=== PATIENT | female | born 1980 | race Caucasian/White ===

== ENCOUNTER 2018-09-24 14:19 | Observation (INO) ==
[2018-09-24] MEDS ORDERED: 0.9 % Sodium Chloride 1,000 ML IVC ONE ×4 (14:35→19:24)
[2018-09-24] MEDS ORDERED: Isovue-370 500 ML INFUS..BTL IV ONE (14:43)
[2018-09-24] MEDS ORDERED: Ondansetron 4 MG/2 ML VIAL IVP ONE (14:44)
[2018-09-24 15:26] LABS: Basophils % 0.2 %; Eosinophils % 0.2 %; Hematocrit 43.9 % (35.3-44.9); Hemoglobin 15.2 g/dL (11.5-15.4); Immature Granulocytes % 0.6 % (0-4); Lymphocytes # 0.2 K/mcL (0.6-4.6); Lymphocytes % 1.8 %; Mean Corpuscular HGB Conc 34.6 g/dL (31.6-35.5); Mean Corpuscular Hemoglobin 30.2 pg (28.0-33.3); Mean Corpuscular Volume 87.3 fL (83.0-100.0); Mean Platelet Volume 10.1 fL (9.4-12.4); Monocytes # 0.2 K/mcL (0.0-1.3); Monocytes % 1.6 %; Neutrophils # 11.8 K/mcL (1.6-8.9); Platelet Count 229 K/mcL (140-400); Red Blood Count 5.03 M/mcL (3.82-4.97); Red Cell Distribution Width 13.5 % (11.5-14.5); Segmented Neutrophils % 95.6 %
[2018-09-24 15:29] LABS: Bilirubin,Urine Negative (Negative); Blood,Urine Small (Negative); Clarity,Urine Slightly Cloudy (Clear); Color,Urine Yellow (Yellow); Glucose,Urine (UA) Normal (Normal); Ketones,Urine Negative (Negative); Leukocyte Esterase,Urine Negative (Negative); Nitrite,Urine Negative (Negative); Protein,Urine 30 mg/dL (Neg-Trace); Specific Gravity,Urine >= 1.030 (1.010-1.025); Urobilinogen,Urine Normal (Normal)
[2018-09-24 15:35] LABS: INR 1.1; Prothrombin Time 12.4 Seconds (9.4-12.1)
[2018-09-24 15:37] LABS: Activated Partial Thrombo Time 29.9 Seconds (26.0-36.0)
[2018-09-24 15:41] LABS: RBC,Urine 0-3 per hpf (0-3)
[2018-09-24 15:42] LABS: Hyaline Casts,Urine Few per lpf (None-Few); Squamous Epithelial Cell,Urine Few per lpf (None-Few); WBC,Urine 0-3 per hpf (0-3)
[2018-09-24 15:43] LABS: Amphetamine Screen,Urine Negative ng/mL (Cutoff=1000); Bacteria,Urine Few per hpf (None-Few); Barbiturate Screen,Urine Negative ng/mL (Cutoff=200); Benzodiazepines Screen,Urine Negative ng/mL (Cutoff=200); Cannabinoid Screen,Urine Negative ng/mL (Cutoff = 50); Cocaine Screen,Urine Negative ng/mL (Cutoff= 300); Mucus,Urine Few (Few); Opiate Screen,Urine Negative ng/mL (Cutoff=300); Phencyclidine Screen,Urine Negative ng/mL (Cutoff=25)
[2018-09-24 15:44] LABS: BUN/Creatinine Ratio 17 (6-26); Blood Urea Nitrogen 13 mg/dL (6-20); Calcium 9.1 mg/dL (8.6-10.3); Carbon Dioxide 23 mEq/L (23-29); Chloride 103 mEq/L (98-107); Glucose 130 mg/dL (70-105); Osmolality,Calculated 286 (280-300); Potassium 3.9 mEq/L (3.5-5.1); Sodium 137 mEq/L (136-145); eGFR For Non-African Americans > 60 (> 60)
[2018-09-24 15:47] LABS: Troponin I < 0.03 ng/mL (< 0.04)
--- NOTE | 2018-09-24 15:53 | Emergency Department Note ---
Disposition Clinical Impression: Sinus tachycardia, Dehydration, Nausea & vomiting, Diarrhea Disposition: Home, Self-Care Condition: Fair Time of Disposition: 18:00 Arrhythmia/Palpitations HPI - General Chief Complaint: ED Arrhythmia/Palpitations Stated Complaint: Chest Heaviness, Palpitations Time Seen by Provider: 09/24/18 14:20 Source: patient, family Mode of arrival: ambulatory Limitations: no limitations Nursing Notes Reviewed: Yes Vital Signs Reviewed: Yes - History of Present Illness HPI Narrative: 38-year-old female who presents today with 2 days of worsening palpitations and intermittent chest pain states that today she has been having nausea vomiting and diarrhea with it. She states the chest pain still comes and goes. She states that she was laying flat at home and checked her blood pressure which was 116 systolic by her heart rate was in the 120s 140s. She states that she does not have any cardiac history but her family does. She states that she is very concerned. She is not a smoker. She is overweight. States about once an hour she has diarrhea episodes. This been no blood in it. She denies any belly pain. She states she has had fever at home. Pt Subjective Complaint: palpitations - Related Data Allergies Allergy/AdvReac Type Severity Reaction Status Date / Time pegfilgrastim [From Neulasta] Allergy Rash Verified 07/31/18 16:37 Review of Systems: All other systems are negative except as noted/marked Chart generated with voice recognition software Nursing notes reviewed Old records reviewed Past Medical History - Past Medical History Attestation: Yes The following information was validated with the patient. Source: patient, old records reviewed, nursing notes reviewed Medical history: Reports: cancer, other Psychiatric history: Reports: anxiety, depression - Social History Smoking Status: Never smoker Smokeless Tobacco Status: No Alcohol use: Reports: none Drug use: Reports: none Physical Exam - General Limitations: no limitations General appearance: alert, anxious, in distress - Head Head exam: atraumatic, normocephalic, normal inspection - Eye Eye exam: Present: normal appearance, PERRL, EOMI - ENT ENT exam: normal exam, normal oropharynx, mucous membranes dry, normal external ear exam - Neck Neck exam: Present: normal inspection, full ROM, trachea midline - Chest Chest inspection: Present: normal inspection, symmetric chest wall rise - Respiratory Respiratory exam: Present: normal lung sounds bilaterally - Cardiovascular Cardiovascular exam: Present: normal rhythm, tachycardia - Abdominal Exam Abdominal exam: Present: soft, hyperactive bowel sounds. Absent: tenderness - Extremities Exam Extremities exam: Present: normal inspection, full ROM. Absent: tenderness, pedal edema - Back Exam Back exam: Present: normal inspection, full ROM. Absent: tenderness - Neurological Exam Neurological exam: Present: alert, oriented X3, CN II-XII intact - Psychiatric Psychiatric exam: Present: normal affect, normal mood - Skin Skin exam: Present: warm, dry, intact, normal color Course Vital Signs Temperature 98.7 F 09/24/18 14:21 Pulse Rate 134 09/24/18 14:21 Respiratory Rate 18 09/24/18 14:21 Blood Pressure 148/91 09/24/18 14:21 O2 Sat by Pulse Oximetry 97 09/24/18 14:21 Temperature 99.2 F 09/24/18 18:21 Pulse Rate 121 09/24/18 18:21 Respiratory Rate 34 09/24/18 18:21 Blood Pressure 126/84 09/24/18 18:21 O2 Sat by Pulse Oximetry 96 09/24/18 18:21 Oxygen Delivery Oxygen Delivery Room Air Arrhythmia/Palpitations - [facility] Narrative Medical decision making narrative: 38yo F 126 hr, 127/76 bp on re-eval after one liter NSGabriel weber paged at [phone], accepted patient to floor. Patient's had 2 L NS zofran and phenergan. Patient presents today with nausea vomiting diarrhea and 2 days of intermittent chest pressure and pain. She states after IV fluids she's not feeling much better and is still nauseated after zofran. I did give her a dose of phenergan however, she states she doesn't like how it makes her feel now, and she doesn't want any additional nausea meds. Her lab work revealed a mild white count elevation and lactic acidosis however her troponin was negative mass for labwork was unremarkable. After 1 L hers brought her troponin name negative and her lactate came down however did not completely resolve after the first liter was completed in the second liter have been started. I do think that she needs to stay in the hospital this point. Her second troponin was negative. We discussed staying here going to arouse she preferred stay here. She said 2 negative troponins I do not think this is cardiac necessarily related anxious some sort of gastroenteritis is probably viral. Cannot find a source of infection otherwise. She feeling better she is not throwing up anymore and not sent however she says that she does not like the way the Phenergan makes her feel. I do think that bringing her in for intractable nausea and letting her rest and IV fluids that her heart rate comes back down to normal is reasonable. Dr. Weber agreed with me except for the patient to the floor. - Medical Records Medical records reviewed: Yes I reviewed the patient's medical records. - Lab Data Lab results reviewed: Yes I reviewed the patient's lab results. Result diagrams: 09/24/18 15:10 09/24/18 15:10 Lab Results 09/24/18 09/24/18 09/24/18 Range/Units 15:10 15:10 15:10 WBC 12.3 H (4.3-11.1) K/mcL RBC 5.03 H (3.82-4.97) M/mcL Hgb 15.2 (11.5-15.4) g/dL Hct 43.9 (35.3-44.9) % MCV 87.3 (83.0-100.0) fL MCH 30.2 (28.0-33.3) pg MCHC 34.6 (31.6-35.5) g/dL RDW 13.5 (11.5-14.5) % Plt Count 229 (140-400) K/mcL MPV 10.1 (9.4-12.4) fL Immature Gran % 0.6 (0-4) % Seg Neutrophils % 95.6 % Lymphocytes % 1.8 % Monocytes % 1.6 % Eosinophils % 0.2 % Basophils % 0.2 % Neutrophils # 11.8 H (1.6-8.9) K/mcL Lymphocytes # 0.2 L (0.6-4.6) K/mcL Monocytes # 0.2 (0.0-1.3) K/mcL Eosinophils # 0.0 (0.0-0.6) K/mcL Basophils # 0.0 (0.0-0.2) K/mcL PT 12.4 H (9.4-12.1) Seconds INR 1.1 APTT 29.9 (26.0-36.0) Seconds Sodium 137 (136-145) mEq/L Potassium 3.9 (3.5-5.1) mEq/L Chloride 103 (98-107) mEq/L Carbon Dioxide 23 (23-29) mEq/L BUN 13 (6-20) mg/dL Creatinine 0.75 (0.60-1.20) mg/dL Est GFR ( Amer) > 60 (> 60) Est GFR (Non-Af Amer) > 60 (> 60) BUN/Creatinine Ratio 17 (6-26) Glucose 130 H (70-105) mg/dL Calculated Osmolality 286 (280-300) Lactic Acid (0.5-2.2) mmol/L Calcium 9.1 (8.6-10.3) mg/dL Magnesium (1.6-2.6) mg/dL Total Bilirubin (0.3-1.0) mg/dL Direct Bilirubin (0.0-0.2) mg/dL Indirect Bilirubin (0.0-1.2) mg/dL AST (13-39) Units/L ALT (7-52) Units/L Alkaline Phosphatase (34-104) Units/L Troponin I < 0.03 (< 0.04) ng/mL Serum Total Protein (6.4-8.9) g/dL Albumin (3.5-5.7) g/dL Globulin (2.4-3.5) g/dL Albumin/Globulin Ratio (1.1-2.2) Lipase (11-82) Units/L TSH 1.222 (0.340-5.600) mcIU/mL Urine Color (Yellow) Urine Clarity (Clear) Urine pH (5.0-8.0) pH Units Ur Specific [place] (1.010-1.025) Urine Protein (Neg-Trace) mg/dL Urine Glucose (UA) (Normal) mg/dL Urine Ketones (Negative) mg/dL Urine Blood (Negative) Urine Nitrite (Negative) Urine Bilirubin (Negative) Urine Urobilinogen (Normal) mg/dL Ur Leukocyte Esterase (Negative) Urine Microscopic RBC (0-3) per hpf Urine Microscopic WBC (0-3) per hpf Ur Squamous Epith Cells (None-Few) per lpf Urine Bacteria (None-Few) per hpf Hyaline Casts (None-Few) per lpf Urine Mucus (Few) Ur Culture Indicated? (NO) Urine Opiates Screen (Folusz=667) ng/mL Ur Oxycodone Screen (Cutoff= 100) ng/mL Ur Barbiturates Screen (Yzuvsc=571) ng/mL Ur Phencyclidine Scrn (Cutoff=25) ng/mL Ur Amphetamines Screen (Yewjcs=9308) ng/mL U Benzodiazepines Scrn (Inuxrw=946) ng/mL Urine Cocaine Screen (Cutoff= 300) ng/mL U Marijuana (THC) Screen (Cutoff = 50) ng/mL Ur Drug Screen Interp 09/24/18 09/24/18 09/24/18 Range/Units 15:10 15:10 15:10 WBC (4.3-11.1) K/mcL RBC (3.82-4.97) M/mcL Hgb (11.5-15.4) g/dL Hct (35.3-44.9) % MCV (83.0-100.0) fL MCH (28.0-33.3) pg MCHC (31.6-35.5) g/dL RDW (11.5-14.5) % Plt Count (140-400) K/mcL MPV (9.4-12.4) fL Immature Gran % (0-4) % Seg Neutrophils % % Lymphocytes % % Monocytes % % Eosinophils % % Basophils % % Neutrophils # (1.6-8.9) K/mcL Lymphocytes # (0.6-4.6) K/mcL Monocytes # (0.0-1.3) K/mcL Eosinophils # (0.0-0.6) K/mcL Basophils # (0.0-0.2) K/mcL PT (9.4-12.1) Seconds INR APTT (26.0-36.0) Seconds Sodium (136-145) mEq/L Potassium (3.5-5.1) mEq/L Chloride (98-107) mEq/L Carbon Dioxide (23-29) mEq/L BUN (6-20) mg/dL Creatinine (0.60-1.20) mg/dL Est GFR ( Amer) (> 60) Est GFR (Non-Af Amer) (> 60) BUN/Creatinine Ratio (6-26) Glucose (70-105) mg/dL Calculated Osmolality (280-300) Lactic Acid 2.8 H (0.5-2.2) mmol/L Calcium (8.6-10.3) mg/dL Magnesium 1.7 (1.6-2.6) mg/dL Total Bilirubin 0.4 (0.3-1.0) mg/dL Direct Bilirubin 0.0 (0.0-0.2) mg/dL Indirect Bilirubin 0.4 (0.0-1.2) mg/dL AST 13 (13-39) Units/L ALT 14 (7-52) Units/L Alkaline Phosphatase 65 (34-104) Units/L Troponin I (< 0.04) ng/mL Serum Total Protein 7.3 (6.4-8.9) g/dL Albumin 4.1 (3.5-5.7) g/dL Globulin 3.2 (2.4-3.5) g/dL Albumin/Globulin Ratio 1.3 (1.1-2.2) Lipase 19 (11-82) Units/L TSH (0.340-5.600) mcIU/mL Urine Color (Yellow) Urine Clarity (Clear) Urine pH (5.0-8.0) pH Units Ur Specific [place] (1.010-1.025) Urine Protein (Neg-Trace) mg/dL Urine Glucose (UA) (Normal) mg/dL Urine Ketones (Negative) mg/dL Urine Blood (Negative) Urine Nitrite (Negative) Urine Bilirubin (Negative) Urine Urobilinogen (Normal) mg/dL Ur Leukocyte Esterase (Negative) Urine Microscopic RBC (0-3) per hpf Urine Microscopic WBC (0-3) per hpf Ur Squamous Epith Cells (None-Few) per lpf Urine Bacteria (None-Few) per hpf Hyaline Casts (None-Few) per lpf Urine Mucus (Few) Ur Culture Indicated? (NO) Urine Opiates Screen (Iflqpn=506) ng/mL Ur Oxycodone Screen (Cutoff= 100) ng/mL Ur Barbiturates Screen (Vwxjwj=185) ng/mL Ur Phencyclidine Scrn (Cutoff=25) ng/mL Ur Amphetamines Screen (Oyjmxj=9771) ng/mL U Benzodiazepines Scrn (Lzwcsb=587) ng/mL Urine Cocaine Screen (Cutoff= 300) ng/mL U Marijuana (THC) Screen (Cutoff = 50) ng/mL Ur Drug Screen Interp 09/24/18 09/24/18 09/24/18 Range/Units 15:17 15:17 16:20 WBC (4.3-11.1) K/mcL RBC (3.82-4.97) M/mcL Hgb (11.5-15.4) g/dL Hct (35.3-44.9) % MCV (83.0-100.0) fL MCH (28.0-33.3) pg MCHC (31.6-35.5) g/dL RDW (11.5-14.5) % Plt Count (140-400) K/mcL MPV (9.4-12.4) fL Immature Gran % (0-4) % Seg Neutrophils % % Lymphocytes % % Monocytes % % Eosinophils % % Basophils % % Neutrophils # (1.6-8.9) K/mcL Lymphocytes # (0.6-4.6) K/mcL Monocytes # (0.0-1.3) K/mcL Eosinophils # (0.0-0.6) K/mcL Basophils # (0.0-0.2) K/mcL PT (9.4-12.1) Seconds INR APTT (26.0-36.0) Seconds Sodium (136-145) mEq/L Potassium (3.5-5.1) mEq/L Chloride (98-107) mEq/L Carbon Dioxide (23-29) mEq/L BUN (6-20) mg/dL Creatinine (0.60-1.20) mg/dL Est GFR ( Amer) (> 60) Est GFR (Non-Af Amer) (> 60) BUN/Creatinine Ratio (6-26) Glucose (70-105) mg/dL Calculated Osmolality (280-300) Lactic Acid 2.3 H (0.5-2.2) mmol/L Calcium (8.6-10.3) mg/dL Magnesium (1.6-2.6) mg/dL Total Bilirubin (0.3-1.0) mg/dL Direct Bilirubin (0.0-0.2) mg/dL Indirect Bilirubin (0.0-1.2) mg/dL AST (13-39) Units/L ALT (7-52) Units/L Alkaline Phosphatase (34-104) Units/L Troponin I (< 0.04) ng/mL Serum Total Protein (6.4-8.9) g/dL Albumin (3.5-5.7) g/dL Globulin (2.4-3.5) g/dL Albumin/Globulin Ratio (1.1-2.2) Lipase (11-82) Units/L TSH (0.340-5.600) mcIU/mL Urine Color Yellow (Yellow) Urine Clarity Slightly Cloudy A (Clear) Urine pH 5.0 (5.0-8.0) pH Units Ur Specific [place] >= 1.030 H (1.010-1.025) Urine Protein 30 H (Neg-Trace) mg/dL Urine Glucose (UA) Normal (Normal) mg/dL Urine Ketones Negative (Negative) mg/dL Urine Blood Small H (Negative) Urine Nitrite Negative (Negative) Urine Bilirubin Negative (Negative) Urine Urobilinogen Normal (Normal) mg/dL Ur Leukocyte Esterase Negative (Negative) Urine Microscopic RBC 0-3 (0-3) per hpf Urine Microscopic WBC 0-3 (0-3) per hpf Ur Squamous Epith Cells Few (None-Few) per lpf Urine Bacteria Few (None-Few) per hpf Hyaline Casts Few (None-Few) per lpf Urine Mucus Few (Few) Ur Culture Indicated? NO (NO) Urine Opiates Screen Negative (Uhpprc=235) ng/mL Ur Oxycodone Screen Negative (Cutoff= 100) ng/mL Ur Barbiturates Screen Negative (Kymnyu=255) ng/mL Ur Phencyclidine Scrn Negative (Cutoff=25) ng/mL Ur Amphetamines Screen Negative (Mohfah=2158) ng/mL U Benzodiazepines Scrn Negative (Vjfocr=690) ng/mL Urine Cocaine Screen Negative (Cutoff= 300) ng/mL U Marijuana (THC) Screen Negative (Cutoff = 50) ng/mL Ur Drug Screen Interp See Below 09/24/18 Range/Units 17:07 WBC (4.3-11.1) K/mcL RBC (3.82-4.97) M/mcL Hgb (11.5-15.4) g/dL Hct (35.3-44.9) % MCV (83.0-100.0) fL MCH (28.0-33.3) pg MCHC (31.6-35.5) g/dL RDW (11.5-14.5) % Plt Count (140-400) K/mcL MPV (9.4-12.4) fL Immature Gran % (0-4) % Seg Neutrophils % % Lymphocytes % % Monocytes % % Eosinophils % % Basophils % % Neutrophils # (1.6-8.9) K/mcL Lymphocytes # (0.6-4.6) K/mcL Monocytes # (0.0-1.3) K/mcL Eosinophils # (0.0-0.6) K/mcL Basophils # (0.0-0.2) K/mcL PT (9.4-12.1) Seconds INR APTT (26.0-36.0) Seconds Sodium (136-145) mEq/L Potassium (3.5-5.1) mEq/L Chloride (98-107) mEq/L Carbon Dioxide (23-29) mEq/L BUN (6-20) mg/dL Creatinine (0.60-1.20) mg/dL Est GFR ( Amer) (> 60) Est GFR (Non-Af Amer) (> 60) BUN/Creatinine Ratio (6-26) Glucose (70-105) mg/dL Calculated Osmolality (280-300) Lactic Acid (0.5-2.2) mmol/L Calcium (8.6-10.3) mg/dL Magnesium (1.6-2.6) mg/dL Total Bilirubin (0.3-1.0) mg/dL Direct Bilirubin (0.0-0.2) mg/dL Indirect Bilirubin (0.0-1.2) mg/dL AST (13-39) Units/L ALT (7-52) Units/L Alkaline Phosphatase (34-104) Units/L Troponin I < 0.03 (< 0.04) ng/mL Serum Total Protein (6.4-8.9) g/dL Albumin (3.5-5.7) g/dL Globulin (2.4-3.5) g/dL Albumin/Globulin Ratio (1.1-2.2) Lipase (11-82) Units/L TSH (0.340-5.600) mcIU/mL Urine Color (Yellow) Urine Clarity (Clear) Urine pH (5.0-8.0) pH Units Ur Specific [place] (1.010-1.025) Urine Protein (Neg-Trace) mg/dL Urine Glucose (UA) (Normal) mg/dL Urine Ketones (Negative) mg/dL Urine Blood (Negative) Urine Nitrite (Negative) Urine Bilirubin (Negative) Urine Urobilinogen (Normal) mg/dL Ur Leukocyte Esterase (Negative) Urine Microscopic RBC (0-3) per hpf Urine Microscopic WBC (0-3) per hpf Ur Squamous Epith Cells (None-Few) per lpf Urine Bacteria (None-Few) per hpf Hyaline Casts (None-Few) per lpf Urine Mucus (Few) Ur Culture Indicated? (NO) Urine Opiates Screen (Opleoz=132) ng/mL Ur Oxycodone Screen (Cutoff= 100) ng/mL Ur Barbiturates Screen (Rdzeca=853) ng/mL Ur Phencyclidine Scrn (Cutoff=25) ng/mL Ur Amphetamines Screen (Hryaip=0603) ng/mL U Benzodiazepines Scrn (Jfkxkm=303) ng/mL Urine Cocaine Screen (Cutoff= 300) ng/mL U Marijuana (THC) Screen (Cutoff = 50) ng/mL Ur Drug Screen Interp - Radiology Data Radiology results reviewed: Yes I reviewed the patient's radiology results. EXAMINATION: CTA OF THE CHEST 09/24/2018 3:45 pm TECHNIQUE: CTA of the chest was performed after the administration of intravenous contrast. Multiplanar reformatted images are provided for review. MIP images are provided for review. Dose modulation, iterative reconstruction, and/or weight based adjustment of the mA/kV was utilized to reduce the radiation dose to as low as reasonably achievable. COMPARISON: CT of the chest 06/16/2015 HISTORY: ORDERING SYSTEM PROVIDED HISTORY: sob, palpitations Relevant Medical/Surgical History: HYDKISON DZ 70 ml of [id number] EXP MARCH 27 Several day history of chest pressure. FINDINGS: Pulmonary Arteries: Pulmonary arteries are adequately opacified for evaluation. No evidence of intraluminal filling defect to suggest pulmonary embolism. Main pulmonary artery is normal in caliber. Mediastinum: The thoracic aorta is normal in course and caliber. The heart is borderline in size with no pericardial effusion. No pathologic hilar or mediastinal adenopathy. Small hiatal hernia. Lungs/pleura: Stable scarring and bronchiectasis in the anterior segment of the right upper lobe. The lungs otherwise are clear. No infiltrate, pleural fluid or pneumothorax. The central airways are patent. Upper Abdomen: Limited images of the upper abdomen are unremarkable. Soft Tissues/Bones: No acute bone or soft tissue abnormality. CT/CT angio chest IMPRESSION: 1. No evidence of pulmonary embolic disease. 2. No acute pulmonary findings. Stable volume loss and bronchiectasis in the right upper lobe anteriorly. D/ / 09/24/2018 15:53:11 Amanuel Hudson MD / sondra Interpreting Provider: Amanuel Hudson MD - EKG Data EKG attestation: Yes I reviewed and interpreted this EKG. EKG results narrative: EKG interpreted by myself as sinus tachycardia rate 125 a QTC of [address] elevation a prior EKG is not available at this time
[2018-09-24 16:01] LABS: Thyroid Stimulating Hormone 1.222 mcIU/mL (0.340-5.600)
[2018-09-24] MEDS ORDERED: *HR* Promethazine 25 MG/ML VIAL IVP ONE (16:54)
[2018-09-24] MEDS ORDERED: Famotidine 20 MG/2 ML VIAL IVP ONE (16:54)
[2018-09-24 17:04] LABS: Albumin 4.1 g/dL (3.5-5.7); Albumin/Globulin Ratio 1.3 (1.1-2.2); Bilirubin,Indirect 0.4 mg/dL (0.0-1.2); Bilirubin,Total 0.4 mg/dL (0.3-1.0); Globulin 3.2 g/dL (2.4-3.5); Total Protein 7.3 g/dL (6.4-8.9)
[2018-09-24] MEDS ORDERED: *HR* HYDROcodone/Acet 5/325 mg TABLET PO PRN (19:24)
[2018-09-24] MEDS ORDERED: Mag Hydrox/Al Hydrox/Simeth 30 ML UDC PO PRN (19:24)
[2018-09-24] MEDS ORDERED: Ondansetron 4 MG/2 ML VIAL IVP PRN (19:24)
[2018-09-24] MEDS ORDERED: Acetaminophen 325 MG TABLET PO PRN (19:24)
[2018-09-24] MEDS ORDERED: Naloxone 0.4 MG/ML INJ IVP PRN (19:24)
[2018-09-24] MEDS: 0.9 % Sodium Chloride 1,000 ML IVC SCH (21:19)
[2018-09-25] MEDS: 0.9 % Sodium Chloride 1,000 ML IVC SCH (05:36)
[2018-09-25 05:38] LABS: Basophils % 0.3 %; Eosinophils % 0.2 %; Hematocrit 35.3 % (35.3-44.9); Immature Granulocytes % 0.9 % (0-4); Lymphocytes # 0.6 K/mcL (0.6-4.6); Lymphocytes % 8.7 %; Mean Corpuscular Hemoglobin 30.2 pg (28.0-33.3); Mean Corpuscular Volume 88.9 fL (83.0-100.0); Mean Platelet Volume 10.7 fL (9.4-12.4); Monocytes # 0.3 K/mcL (0.0-1.3); Monocytes % 4.1 %; Neutrophils # 5.5 K/mcL (1.6-8.9); Platelet Count 191 K/mcL (140-400); Red Blood Count 3.97 M/mcL (3.82-4.97); Red Cell Distribution Width 14.1 % (11.5-14.5); Segmented Neutrophils % 85.8 %
[2018-09-25 06:15] LABS: Alanine Aminotransferase 11 Units/L (7-52); Albumin 3.2 g/dL (3.5-5.7); Albumin/Globulin Ratio 1.3 (1.1-2.2); Alkaline Phosphatase 47 Units/L (34-104); Aspartate Amino Transferase 12 Units/L (13-39); BUN/Creatinine Ratio 16 (6-26); Bilirubin,Total 0.3 mg/dL (0.3-1.0); Blood Urea Nitrogen 10 mg/dL (6-20); Calcium 7.4 mg/dL (8.6-10.3); Carbon Dioxide 22 mEq/L (23-29); Chloride 110 mEq/L (98-107); Chol/HDL Ratio 4.3 (0-4.9); Cholesterol 134 mg/dL (< 200); Globulin 2.5 g/dL (2.4-3.5); Glucose 103 mg/dL (70-105); HDL Cholesterol 31 mg/dL (40-59); LDL Cholesterol,Calculated 75 mg/dL (0-99); Magnesium 1.7 mg/dL (1.6-2.6); Osmolality,Calculated 287 (280-300); Potassium 3.5 mEq/L (3.5-5.1); Sodium 139 mEq/L (136-145); Total Protein 5.7 g/dL (6.4-8.9); Triglycerides 138 mg/dL (< 150); eGFR For Non-African Americans > 60 (> 60)
[2018-09-25 11:19] VITALS: BP 124/71
--- NOTE | 2018-09-25 14:52 | Internal Med History&Physical ---
Date of Encounter: 09/25/18 Time of Encounter: 14:20 Assessment and Plan (1) Acute gastroenteritis Current visit: Yes Status: Acute Likely viral etiology. She states she has not vomited in approximately 24 hours. Diarrhea and chest discomfort have lessened. She wishes to be discharged home. Internal Medicine - H&P: HPI Chief complaint: Vomiting, diarrhea, chest heaviness Admitted From: Emergency Dept Plans for Post Hospital Care: Home History of present illness: Ms. Valle is a 38 year old female who came to emergency room stating she had onset of chest heaviness with sensation of dyspnea September 22. On the morning of admission she awakened with nausea and soon experienced multiple episodes of vomiting and diarrhea. She denies melena, hematochezia, or hematemesis. She felt fevered and chilled alternately. She came to emergency room and was evaluated and admitted to [facility] floor for ongoing care needs. She states she feels improved at present time and stable for discharge home. She reports her sister had similar symptoms approximately 3 weeks ago. She denies known disorders of her liver gallbladder or exocrine pancreas. Past Med Surg Social Fam HX - Past Medical History Medical history: cancer Additional medical history: Hodgkins Lymphoma Psychiatric history: anxiety, depression - Past Surgical History Additional surgical history: POWER PORT REMOVED TO RT UPPER CHEST , BREAST REDUCTION - Social History Smoking Status: Never smoker Smokeless Tobacco Status: No Alcohol use: none Drug use: none - Family History Father Living Status: Still Living Hx Family Cardiac Disorders: Yes (PA with stents) Hx Family Endocrine Disorder: Yes (DM) Internal Medicine - H&P: Meds Allergy/AdvReac Type Severity Reaction Status Date / Time pegfilgrastim [From Neulasta] Allergy Rash Verified 07/31/18 16:37 All Systems PM: A 10-system review of systems was performed and is negative for pertinent findings except as documented above in the HPI. Review of systems: Gen.: She states her weight is increased approximately 12 pounds in the past year Cardiovascular: She has frequent dyspnea on exertion but denies chest pain. She denies hypertension PA heart failure DVT or pulmonary embolus Respiratory: She is a lifelong nonsmoker and has no known chronic lung disease GI: As per history of present illness : She denies hematuria dysuria or kidney stones Neurologic: She denies large distribution strokes or seizures. Endocrine: She has history of hyperlipidemia but does not take medication at this time. She reports history of vitamin D deficiency. Hematology/oncology: She was diagnosed with Hodgkin's lymphoma in 2011. She received chemotherapy and radiation therapy and was told she was cured after several months of treatment. She has had no known recurrence. She denies other malignancies but has had anemia in the past. Psychiatric: She has feelings of anxiety and depression at times but does not take medication. [place] skeletal: She has occasional arthralgias but denies gout or other documented bone joint or muscle disorders. - Constitutional Vitals: Temp Pulse Resp BP Pulse Ox 98.4 F 106 14 124/71 98 09/25/18 11:17 09/25/18 11:17 09/25/18 11:17 09/25/18 11:17 09/25/18 11:17 Exam: Gen.: She is a well-developed overweight female lying in bed who appears in no acute distress at present time HEENT: Head is atraumatic and normocephalic. Eyes: EOMI. There is no scleral icterus. Mouth: Mucosa is moist. Neck: Supple and nontender. There is no thyromegaly or adenopathy noted. Heart: Regular without murmurs gallops or ectopics Lungs: No wheezes or crackles are heard. Abdomen: Soft and nontender. Bowel sounds are present. No masses or guarding are noted. Extremities: There is no cyanosis edema or clubbing noted. Dorsalis pedis and posterior tibial pulses are trace palpable bilaterally. Neurologic: Mental status: She is talkative and a good historian. Cranial nerves: Smile is symmetric. Forehead wrinkles bilaterally. Tongue protrudes midline. EOMI. Motor: There is no pronator drift. Cerebellar: Fair to nose is intact bilaterally. Skin: Warm and dry Internal Med - H&P Results - Labs CBC & Chem 7: 09/25/18 04:30 09/25/18 04:30 Labs: Short CBC 09/24/18 09/25/18 Range/Units 15:10 04:30 WBC 12.3 H 6.4 (4.3-11.1) K/mcL Hgb 15.2 12.0 D (11.5-15.4) g/dL Hct 43.9 35.3 (35.3-44.9) % Plt Count 229 191 (140-400) K/mcL Neutrophils # 11.8 H 5.5 (1.6-8.9) K/mcL BMP 09/24/18 09/25/18 15:10 04:30 Sodium 137 139 Potassium 3.9 3.5 Chloride 103 110 H Carbon Dioxide 23 22 L BUN 13 10 Creatinine 0.75 0.62 Glucose 130 H 103 Calcium 9.1 7.4 L Cardiac Enzymes 09/24/18 09/24/18 09/24/18 Range/Units 15:10 17:07 22:57 Troponin I < 0.03 < 0.03 < 0.03 (< 0.04) ng/mL 09/25/18 Range/Units 04:30 Troponin I < 0.03 (< 0.04) ng/mL Liver Function 09/24/18 09/25/18 Range/Units 15:10 04:30 Total Bilirubin 0.4 0.3 (0.3-1.0) mg/dL Direct Bilirubin 0.0 (0.0-0.2) mg/dL AST 13 12 L (13-39) Units/L ALT 14 11 (7-52) Units/L Alkaline Phosphatase 65 47 (34-104) Units/L Albumin 4.1 3.2 L (3.5-5.7) g/dL Urine 09/24/18 Range/Units 15:17 Urine Color Yellow (Yellow) Urine Clarity Slightly Cloudy A (Clear) Urine pH 5.0 (5.0-8.0) pH Units Ur Specific [place] >= 1.030 H (1.010-1.025) Urine Protein 30 H (Neg-Trace) mg/dL Urine Glucose (UA) Normal (Normal) mg/dL - Impressions ITS Impressions Chest CTA 09/24/18 14:43 IMPRESSION: 1. No evidence of pulmonary embolic disease. 2. No acute pulmonary findings. Stable volume loss and bronchiectasis in the right upper lobe anteriorly. D/ /24/2018 15:53:11 Amanuel Hudson MD / sondra Interpreting Provider: Amanuel Hudson MD
--- NOTE | 2018-09-25 15:01 | Discharge Summary ---
Orders not resulted at time of discharge: Pending orders 09/24/18 15:10 Culture,Blood [BC] Stat Date of Encounter: 09/25/18 Time of Encounter: 14:20 - Discharge Diagnosis (1) Acute gastroenteritis Priority: Primary Status: Acute Hospital course: Ms. Valle is a 38 year old female who came to emergency room stating she had onset of chest heaviness with sensation of dyspnea September 22. On the morning of admission she awakened with nausea and soon experienced multiple episodes of vomiting and diarrhea. She denies melena, hematochezia, or hematemesis. She felt fevered and chilled alternately. She came to emergency room and was evaluated and admitted to [facility] for ongoing care needs. Initial orders were written by the emergency room physician. I saw her the afternoon of September 25 performed a history physical and discharge. She was given IV fluids. Antiemetics were given as needed. She felt significantly improved by the time I saw her and stated she felt stable for discharge home. She reports she had no vomiting for approximately 24 hours. She stated her diarrhea had lessened. She can return to work 09/28/2018. I encouraged her to become established with a PCP. - Time Spent with Patient Total time spent providing and/or coordinating discharge services: - Discharge Medications Allergies/Adverse Reactions: Allergy/AdvReac Type Severity Reaction Status Date / Time pegfilgrastim [From Neulasta] Allergy Rash Verified 07/31/18 16:37 Date of admission: 09/24/18 18:29 Primary care physician: PCP NONE - Constitutional Vitals: Temp Pulse Resp BP Pulse Ox 98.4 F 106 14 124/71 98 09/25/18 11:17 09/25/18 11:17 09/25/18 11:17 09/25/18 11:17 09/25/18 11:17 - Patient Status Disposition: Home, Self-Care Condition: Fair - Discharge Instructions Follow Up With: NONE,PCP [Primary Care Provider] - 1 week - Diet and Activity Activity: resume usual activities as tolerated Diet: advance to your usual diet
--- NOTE | 2018-09-27 10:41 | Electrocardiograph Report ---
[address] [id number] Test Date: 2018-09-24 Pat Name: Joie Valle Department: [id number] Room: [facility] Gender: F Senior Support Analyst: [id number] : 1980 Requested By: Poly Arguello Order Number: [id number] Reading MD: Moshe Miller Measurements Intervals [place] Rate: 125 P: 39 AL: 133 QRS: -26 QRSD: 80 T: 56 QT: 306 QTc: 380 Interpretive Statements SINUS TACHYCARDIA LEFT VENTRICULAR HYPERTROPHY AND ST-T CHANGE Electronically Signed On 09-27-2018 10:39:55 EST by Moshe Miller
== END 2018-09-25 16:54 | disposition home or self-care (01) ==
LOC: EMEROOPIK 14:19 → INPPIK 14:19
PROVIDERS: ADMIT Internal Medicine; ATTEND Internal Medicine